=== PATIENT | male | born 1960 | race Caucasian/White ===

== ENCOUNTER → 2024-12-27 | Outpatient (CLI) | payer BC ==
--- NOTE | 2024-12-27 10:56 | CT ---
EXAMINATION TYPE: CT sinus wo con DATE OF EXAM: 12/27/2024 COMPARISON: NONE CLINICAL INDICATION: Male, 64 years old with history of J32.0 CHRONIC MAXILLARY SINUSITIS, Pt states he had 2 root canals and ENT is worried they drilled into his sinus., TECHNIQUE: CT scan of the sinuses performed without contrast, patient injected with mL of .(none if empty) CT DLP: 445.3 mGycm, Automated exposure control for dose reduction was used. TECHNIQUE: CT scan of the sinuses is performed without contrast, axial images are obtained, coronal r eformatted images are also reviewed. FINDINGS: Minimal mucosal thickening inferior portion of the left maxillary sinus and posterior porti on of the right maxillary sinus. No inferior erosion of the maxillary sinus holman is identified . No suspicious dental projection into the inferior portion of the maxillary sinus The paranasal sinuses including the frontal, ethmoid, sphenoid, and maxillary sinuses bilaterally are well-aerated without abnormal opacification or suspicious air-fluid levels. The ostiomeatal complex is patent bilaterally on the coronal images. Some left-sided antral mucosal thickening is present. Nasal septum is deviate d to right of midline. Visualized portion of mastoid air cells show no abnormal opacification. The globes are intact bilate rally. IMPRESSION: Minimal chronic maxillary sinus disease. No acute sinusitis. [facility], , 12/27/2024 10:53 AM
== END | disposition home or self-care (01) ==
LOC: RADCTMAIN 10:27
PROVIDERS: ATTEND Otolaryngology
DX: J32.0 Chronic maxillary sinusitis (principal)
CPT/HCPCS: 70486